=== PATIENT | female | born 1940 | race Two or more races ===

== ENCOUNTER 2018-04-08 21:38 | Emergency (ER) | payer OTHER ==
[~2018-04-08] VITALS: Ht 149.9 cm; Wt 48.5 kg
[~2018-04-08 21:38] MED LIST: ALBUTEROL17 GM; ASTELIN137 MCG; CELEBREX50 MG; CLARINEX-D 21 BOTTLE; GLUCOTROL10 MG; NEURONTIN250 MG/5 M; [UNRECOGNIZED DRUG - OTHER]
[2018-04-09] MEDS ORDERED: PEPCID40 MG PO (02:04)
== END 2018-04-09 02:00 | disposition home or self-care (01) ==
LOC: ER 21:38
DX: K29.70 Gastritis, unspecified, without bleeding (principal); N39.0 Urinary tract infection, site not specified

== ENCOUNTER 2018-04-11 12:33 | Emergency (ER) | payer OTHER ==
[~2018-04-11] VITALS: Wt 63.5 kg
[~2018-04-11 12:33] MED LIST changes: +PEPCID40 MG PO
== END 2018-04-11 18:34 | disposition home or self-care (01) ==
LOC: ER 12:33
DX: K52.9 Noninfective gastroenteritis and colitis, unspecified (principal); E86.0 Dehydration

== ENCOUNTER 2018-11-14 14:44 | Emergency (ER) | payer OTHER ==
[~2018-11-14] VITALS: Ht 152.4 cm; Wt 48.5 kg
[2018-11-14] MEDS ORDERED: LORATADINE10 M2 (15:34)
[2018-11-14] MEDS ORDERED: SYNTHROID75 MCG (15:35)
[2018-11-14] MEDS ORDERED: PENTOXIFYLLINE400 MG (15:35)
== END 2018-11-14 18:53 | disposition home or self-care (01) ==
LOC: ER 14:44
DX: I87.2 Venous insufficiency (chronic) (peripheral) (principal); M79.661 Pain in right lower leg